=== PATIENT | male | born 1965 | race Caucasian/White ===

== ENCOUNTER 2019-09-30 14:43 | Emergency (ER) | payer OTHER ==
[~2019-09-30] VITALS: Ht 182.9 cm; Wt 99.8 kg
[2019-09-30] MEDS ORDERED: TOPROL XL25 M1 (15:17)
[2019-09-30] MEDS ORDERED: PROSCAR5 MG (15:17)
[2019-09-30] MEDS ORDERED: NORVASC10 MG (15:17)
== END 2019-09-30 16:57 | disposition home or self-care (01) ==
LOC: ER 14:43
DX: L29.8 Other pruritus (principal)

== ENCOUNTER 2020-02-18 14:39 | Emergency (ER) | payer OTHER ==
[~2020-02-18] VITALS: Ht 182.9 cm; Wt 95.3 kg
[~2020-02-18 14:39] MED LIST: NORVASC10 MG; PROSCAR5 MG; TOPROL XL25 M1
== END 2020-02-18 20:18 | disposition home or self-care (01) ==
LOC: ER 14:39
DX: N43.2 Other hydrocele (principal); N43.41 Spermatocele of epididymis, single